=== PATIENT | male | born 1940 | race Caucasian/White ===

== ENCOUNTER → 2017-11-17 13:45 | Outpatient (POV) | payer MEDICARE, SELFPAY | PROVIDERS: Visit Provider Dermatology | DX: Z00.00 Encounter for general adult medical examination without abnormal findings (principal) ==

== ENCOUNTER → 2017-12-27 13:57 | Outpatient (POV) | payer MEDICARE, SELFPAY | PROVIDERS: Visit Provider Dermatology | DX: Z00.00 Encounter for general adult medical examination without abnormal findings (principal) ==

== ENCOUNTER → 2018-01-03 12:50 | Outpatient (POV) | payer MEDICARE, SELFPAY | PROVIDERS: Visit Provider Dermatology | DX: Z00.00 Encounter for general adult medical examination without abnormal findings (principal) ==

== ENCOUNTER → 2018-01-31 12:40 | Outpatient (POV) | payer MEDICARE, SELFPAY | PROVIDERS: Visit Provider Dermatology | DX: Z00.00 Encounter for general adult medical examination without abnormal findings (principal) ==

== ENCOUNTER → 2018-04-11 13:07 | Outpatient (POV) | payer MEDICARE, SELFPAY | PROVIDERS: Visit Provider Dermatology | DX: Z00.00 Encounter for general adult medical examination without abnormal findings (principal) ==

== ENCOUNTER → 2018-05-02 14:15 | Outpatient (POV) | payer MEDICARE, SELFPAY | PROVIDERS: Visit Provider Dermatology | DX: Z00.00 Encounter for general adult medical examination without abnormal findings (principal) ==

== ENCOUNTER → 2018-05-16 13:43 | Outpatient (POV) | payer MEDICARE, SELFPAY | PROVIDERS: Visit Provider Dermatology | DX: Z00.00 Encounter for general adult medical examination without abnormal findings (principal) ==

== ENCOUNTER → 2018-08-29 12:26 | Outpatient (POV) | payer MEDICARE, SELFPAY | PROVIDERS: Visit Provider Dermatology | DX: Z00.00 Encounter for general adult medical examination without abnormal findings (principal) ==

== ENCOUNTER → 2018-09-12 13:46 | Outpatient (POV) | payer MEDICARE, SELFPAY | PROVIDERS: Visit Provider Dermatology | DX: Z00.00 Encounter for general adult medical examination without abnormal findings (principal) ==

== ENCOUNTER → 2018-09-26 12:49 | Outpatient (POV) | payer MEDICARE, SELFPAY | PROVIDERS: Visit Provider Dermatology | DX: Z00.00 Encounter for general adult medical examination without abnormal findings (principal) ==

== ENCOUNTER → 2019-01-09 13:47 | Outpatient (POV) | payer MEDICARE, SELFPAY | PROVIDERS: Visit Provider Dermatology | DX: Z00.00 Encounter for general adult medical examination without abnormal findings (principal) ==

== ENCOUNTER → 2021-07-23 08:01 | Outpatient (CLI) | payer MEDICARE, SELFPAY ==
[2021-07-23 10:15] LABS: C-Reactive Protein 3.8 mg/L (0-4)
[2021-07-24 16:24] LABS: Cytoplasmic (C-ANCA) <1:20 titer (Neg:<1:20); Perinuclear (P-ANCA) <1:20 titer (Neg:<1:20)
[2021-07-25 02:14] LABS: Anti-Cyclic Citrullinated Pept 4 units (0-19)
[2021-07-29 10:15] LABS: Aspergillus fumigatus IgG Negative (Negative); Pigeon Serum Abs Negative (Negative)
[2021-08-08 18:19] LABS: Antinuclear Antibodies (ANA) NEGATIVE
== END ==
PROVIDERS: Visit Provider Internal Medicine Pulmonary Disease
DX: R06.00 Dyspnea, unspecified (principal); J84.9 Interstitial pulmonary disease, unspecified
CPT/HCPCS: 36415; 86038; 86140; 86200; 86225; 86235; 86256; 86331; 86431; 86602; 86606; 86609

== ENCOUNTER → 2021-08-07 10:48 | Outpatient (CLI) | payer MEDICARE, SELFPAY ==
--- NOTE | 2021-08-07 10:49 | CA_ITS ---
APPROVED REPORT EXAM: Comprehensive 2D, Doppler, and color-flow Echocardiogram Toter: Sandra Ball RT(R) Ht: 5 ft 7 in Wt: 174lbs BSA: 1.91 BP: 187/60 mmHg Indications: smoker, SOB, edema. 2D Dimensions LVOT 2.04 cm (M/F) 1.5-2.5 LVEF (Bell's) 53.70 % M: 52 - 72 LV Volume 105.50 mL M: 62 - 150 LV Volume Index 55.52 mL/m2 M: 34 - 74 LA Volume 47.90 mL LA Volume Index 25.21 mL/m2 (M/F) 16-34 M-Mode Dimensions RVDd 1.94 cm (0.9-2.6) LA Diam 4.92 cm (1.9-4.0) LVDd 4.60 cm (3.5-5.7) Ao Diam 2.97 cm (2.0-3.7) LVDs 3.65 cm (3.5-5.7) IVSd 0.80 cm (0.6-1.1) PWd 0.87 cm (0.6-1.1) EF (Teich) 42.10% FS 20.70% EDV (Teich) 97.30 mL TAPSE 1.70 (<1.7) ESV (Teich) 56.30 mL LV Diastology E Decel Time 157.00 (160-240 msec) E/A Ratio 1.23 MED E' 8.60 (< 7 cm/sec) E'/MED E' Ratio 10.84 (>14) LAT E' 13.70 (<10 cm/sec) E/LAT E' Ratio 6.80 (>14) Mitral Valve MV A Velocity 76.00 (40-130 cm/s) E/A Ratio 1.23 MV Decel. Time 157.00 (160-240 ms) Left Ventricle Left atrium is mildly enlarged, left ventricle is normal size, mild concentric left ventricular hypertrophy, estimated ejection fraction 55% with no regional wall motion abnormality, grade 2 diastolic dysfunction seen without tissue Doppler evidence of elevated left atrial pressure. Right Ventricle Right atrium and right ventricle are mildly enlarged with normal contractility. Aortic Valve Aortic valve is minimally thickened and fibrosed there is no aortic stenosis or aortic insufficiency. Mitral Valve Mitral valve is grossly normal, there is trace mitral regurgitation. Tricuspid Valve Tricuspid valve grossly normal, there is trace tricuspid regurgitation, tricuspid regurgitation jet velocity is inadequate for calculation of the right ventricular systolic pressure. Pulmonic Valve Pulmonic valve is poorly visualized. Great Vessels Aortic root is normal size. Inferior vena cava is poorly visualized. Pericardium No significant pericardial effusion noted. Conclusion 1. Mild biatrial enlargement, normal left ventricular size, mild concentric left ventricular hypertrophy, estimated ejection fraction 55% with no regional wall motion abnormality, grade 2 diastolic dysfunction seen without tissue Doppler evidence of raise left atrial pressure. 2. Mildly enlarged right ventricle with normal contractility. 3. Trace mitral and tricuspid regurgitation. 4. No significant pericardial effusion. 5. Inferior vena cava is poorly visualized. Electronically signed by : Milan Gamez MD 08/07/2021 12:58:10
[2021-08-07 11:50] VITALS: PULSE 60; PULSE 63
== END ==
PROVIDERS: PCP Family Medicine; Visit Provider Internal Medicine Pulmonary Disease
DX: R06.00 Dyspnea, unspecified (principal)
CPT/HCPCS: 93306; 94060; 94618; 94640; 94727; 94729

== ENCOUNTER → 2021-09-03 08:31 | Outpatient (CLI) | payer MEDICARE, SELFPAY ==
[2021-09-03 10:22] LABS: Chloride 102 mmol/L (98-107)
[2021-09-03 10:23] LABS: Potassium 4.7 mmoL/L (3.5-5.1); Sodium 138 mmol/L (136-145)
[2021-09-03 10:25] LABS: Alanine Aminotransferase 19 U/L (12-78); Alkaline Phosphatase 124 U/L (38-126); Aspartate Amino Transferase 30 U/L (17-59); Bilirubin,Total 0.2 mg/dl (0.2-1.3); Blood Urea Nitrogen 16 mg/dl (9-20); Estimated Glomerular Filt Rate 81 ml/min (>60); GFR (African American) 98 ML/MIN (>60)
[2021-09-03 10:26] LABS: Albumin Level 4.5 g/dl (3.5-5.0); Albumin/Globulin Ratio 1.6 (1.1-1.8); Anion Gap 13.7 mEq/L (5-15); Calcium 9.7 mg/dl (8.4-10.2); Carbon Dioxide 27 mmol/L (22.0-30.0); Creatine Kinase 150 U/L (55-170); Globulin 2.8 g/dL (1.3-3.2); Glucose 262 mg/dl (74-100); Total Protein,Serum 7.3 g/dl (6.3-8.2)
[2021-09-03 10:58] LABS: Thyroid Stimulating Hormone 2.18 uIU/mL (0.465-4.68)
[2021-09-03 11:18] LABS: Intact Parathyroid Hormone 30.5 pg/mL (7.5-53.5)
[2021-09-04 12:10] LABS: Anti-Centromere B Antibodies <0.2 AI (0.0-0.9); Anti-DNA (DS) Ab Qn <1 IU/mL (0-9); Antiribosomal P Antibodies <0.2 AI (0.0-0.9); Antiscleroderma-70 Antibodies <0.2 AI (0.0-0.9); Sjogren's Anti-SS-A <0.2 AI (0.0-0.9); Sjogren's Anti-SS-B <0.2 AI (0.0-0.9); Smith/RNP Antibodies <0.2 AI (0.0-0.9)
[2021-09-04 16:13] LABS: Aldolase 3.2 U/L (3.3-10.3); Angiotensin Converting Enzyme 50 U/L (14-82)
[2021-09-18 17:11] LABS: 1,25 Dihydroxy Vitamin D 35 pg/mL (.); 1,25-Dihydroxy, Vitamin D-2 <10 pg/mL (.); 1,25-Dihydroxy, Vitamin D-3 34 pg/mL (.)
== END ==
PROVIDERS: PCP Family Medicine; Visit Provider Internal Medicine Pulmonary Disease
DX: J84.9 Interstitial pulmonary disease, unspecified (principal); R06.00 Dyspnea, unspecified; E83.59 Other disorders of calcium metabolism; J84.10 Pulmonary fibrosis, unspecified
CPT/HCPCS: 36415; 80053; 82085; 82164; 82550; 82652; 83516; 83970; 84443; 86225; 86235